=== PATIENT | female | born 1965 | race Caucasian/White ===

== ENCOUNTER → 2017-01-14 | Outpatient (CLI) | payer OTHER ==
--- NOTE | ~2017-01-14 | MY29 ---
[facility] A Service of [facility] & [facility] / [facility] RADIOLOGY TEXT RESULTS PATIENT: TRAN CARROLL LOCATION: [facility] : [birth year] UNIT #: [id number] AGE: [address]: Brendan Spaulding APRN SEX: F ORDER DR: [id number] [facility] [address] [place], [place] [address] [id number] O MR#: [id number] Acc #: [id number] NAME: TRAN CARROLL : 1965 SEX: F STUDY DATE/TIME: 01/14/2017 13:39 UNIT: [facility] ROOM: STUDY DESCRIPTION: [facility] SCREENING W/ CAD BILAT Attending Physician: Brendan Spaulding A.P.R.N. Referring Physician: Brendan Spaulding A.P.R.N. Ordering Physician: Brendan Spaulding A.P.R.N. Primary Care Physician: Nina Fernandez A.P.R.N. MEDICAL IMAGING REPORT This report is preliminary unless electronic signature is present EXAM Bilateral digital screening mammogram with CAD, 01/14/2017. INDICATIONS 51-year-old female for routine screening. No reported problems. No personal or family history of breast cancer. No surgeries. TECHNIQUE CC and MLO views of the breast were obtained and reviewed with an FDA approved CAD device. COMPARISON 01/15/2016, 08/07/2016, 06/03/2011. Comparison also made with prior study of 12/29/2007 FINDINGS Breast parenchyma is composed of scattered fibroglandular densities. The pattern is unchanged. There is no new dominant nodule, mass or suspicious cluster of microcalcifications. Benign calcifications are present. IMPRESSION 1. Benign screening mammogram. One-year followup is recommended. Patients over the age of 40 are entered into a reminder system with target due date for the next mammogram. A result letter will also be sent to the patient. BIRADS: 2 Benign finding. Dictated by... Mazin Luna M.D. THIS IS AN ELECTRONICALLY VERIFIED REPORT [facility] A Service of [facility] & [facility] / [facility] RADIOLOGY TEXT RESULTS PATIENT: TRAN CARROLL LOCATION: [facility] : [birth year] UNIT #: [id number] AGE: [address]: Brendan Spaulding CLINICAL PATHOLOGIST SEX: F ORDER DR: Mazin Luna M.D. at 01/15/2017 8:29 AM Idania TD: 01/15/2017 06:37 JOB #: [id number] MEDICAL IMAGING REPORT Page 1 of 1 COPY
--- NOTE | ~2017-01-14 | BD1 ---
[facility] A Service of [facility] & [facility] RADIOLOGY TEXT RESULTS PATIENT: TRAN CARROLL LOCATION: [facility] : [birth year] UNIT #: [id number] AGE: [address]: Brendan Spaulding APRN SEX: F ORDER DR: [id number] [facility] [address] [place], [place] [address] [id number] O MR#: [id number] Acc #: [id number] NAME: TRAN CARROLL : 1965 SEX: F STUDY DATE/TIME: 01/14/2017 13:55 UNIT: [facility] ROOM: STUDY DESCRIPTION: BD Dexa Bone Dens 1+ Site Attending Physician: Brendan Spaulding A.P.R.N. Referring Physician: Brendan Spaulding A.P.R.N. Ordering Physician: Brendan Spaulding A.P.R.N. Primary Care Physician: Nina Fernandez A.P.R.N. MEDICAL IMAGING REPORT This report is preliminary unless electronic signature is present EXAM Bone density spine/hip; 01/14/2017. HISTORY Screening for osteoporosis. Postmenopausal. TECHNIQUE Bone mineral density performed upper 4 lumbar vertebral segments and left proximal femur in 51-year-old, 185 pound female. The patient indicates that she is postmenopausal. FINDINGS L1-L4: Total bone mineral density of 1.203 g/cm2 for a T-score of 1.4 standard deviation above the mean for a referenced population in normal young individuals and Z-score 2.1 standard deviations above the mean for age-matched population. In the proximal left femur, total bone mineral density is 0.969 g/cm2 for a T-score of 0.2 standard deviations above the mean for a reference population in normal young individuals and Z-score 0.7 standard deviations above the mean for age-matched population. In the left femoral neck, specifically, the bone mineral density is 0.794 g/cm2 for a T-score of 0.5 standard deviations below the mean for referenced population in normal young individuals and 0-score 0.2 standard deviations above the mean for age-matched population. IMPRESSION 1. Normal bone mineral density upper four lumbar vertebral segments and in the left proximal femur. Please correlate with patient's clinical status. Continued surveillance recommended. [facility] A Service of [facility] RADIOLOGY TEXT RESULTS PATIENT: TRAN CARROLL LOCATION: [facility] : 69 UNIT #: [id number] AGE: [address]: Brendan Spaulding APRN SEX: F ORDER DR: Dictated by... Samuel Lees M.D. THIS IS AN ELECTRONICALLY VERIFIED REPORT Samuel Lees M.D. at 01/18/2017 10:33 AM FITO/kathie TD: 01/15/2017 17:26 JOB #: [id number] MEDICAL IMAGING REPORT Page 1 of 1 COPY
== END | disposition home or self-care (01) ==
LOC: CWCC 13:12
DX: Z12.31 Encounter for screening mammogram for malignant neoplasm of breast (principal); Z13.820 Encounter for screening for osteoporosis; Z78.0 Asymptomatic menopausal state
CPT/HCPCS: 77080; G0202